=== PATIENT | male | born 1955 | race Caucasian/White ===

== ENCOUNTER 2017-01-11 10:43 | Inpatient (IN) | payer OTHER ==
[2017-01-11] MEDS ORDERED: ONDANSETRON 4 MG/2ML 2 ML VIAL ONE ×2 (11:46→20:24)
[2017-01-11] MEDS ORDERED: MORPHINE SULFATE 4 MG/ML SYRINGE ONE (11:46)
[2017-01-11 12:06] LABS: ABSOLUTE NEUTROPHIL COUNT 5.1 K/mm3 (1.8-7.7); BASO # 0.1 K/mm3 (0.0-0.2); BASO % 0.7 % (0.2-1.0); EOS # 0.2 (0.0-0.5); EOS % 2.6 % (0.9-2.9); HEMATOCRIT 47.9 % (32.0-52.0); HEMOGLOBIN 16.3 gm/l (14.0-18.0); IMM NEUT% 0.2 % (0-1); LYMPH # 2.5 (1.0-4.8); MEAN CELL VOLUME 94.5 fl (80.0-94.0); MEAN CORPUSCULAR HEMOGLOBIN 32.1 pg (27.0-31.0); MEAN PLATELET VOLUME 10.9 fl (7.4-10.4); MONO # 0.7 (0.0-0.8); MONO % 7.6 % (4-12); NEUT % 59.9 % (43-75); PLATELET COUNT 254 K/mm3 (130-400); RED CELL DISTRIBUTION WIDTH 13.2 % (11.5-14.5)
--- NOTE | 2017-01-11 12:10 | RAD ---
FINGER LEFT HISTORY: Bug bite to the ring finger now with swelling and pain. COMPARISONS: None. FINDINGS: 3 views of the left fourth ray demonstrate diffuse soft tissue swelling involving the proximal aspect. The osseous structures remain intact. No foreign body or soft tissue gas is suggested. The joint spaces are well-maintained. The alignment is intact. IMPRESSION: 1. Diffuse soft tissue swelling of the proximal left fourth ray with no focal osseous abnormalities are identified.
[2017-01-11] MEDS ORDERED: VANCOMYCIN HCL 1.5 G in SODIUM CHLORIDE 0.9% 500 ML IV ONE (12:15)
[2017-01-11 12:18] LABS: ALB/GLOB RATIO 1.3 (>1.0); ALBUMIN 4.4 gm/dL (3.5-5.7); CALCIUM 9.7 mg/dL (8.6-10.3)
[2017-01-11] MEDS ORDERED: SODIUM CHLORIDE 0.9% FLUSH 10 ML ONE (13:49)
[2017-01-11 14:12] VITALS: BMI 35.0
[2017-01-11] MEDS ORDERED: BISACODYL 10 MG SUP PR PRN (14:26)
[2017-01-11] MEDS ORDERED: DIPHENHYDRAMINE HCL 50 MG CAPSULE PO PRN (14:26)
[2017-01-11] MEDS ORDERED: ACETAMINOPHEN 325 MG TABLET PO PRN (14:26)
[2017-01-11] MEDS ORDERED: BISACODYL 5 MG TABLET.EC PO PRN (14:26)
[2017-01-11] MEDS ORDERED: MENTHOL/CETYLPYRD 1 EACH LOZENGE PO PRN (14:26)
[2017-01-11] MEDS ORDERED: BLISTEX LIPSTICK 1 EACH TP PRN (14:26)
[2017-01-11] MEDS ORDERED: MAGNESIUM HYDROXIDE 30 ML UDCUP PO PRN (14:26)
[2017-01-11] MEDS ORDERED: CALCIUM CARBONATE 500 MG TAB.CHEW PO PRN (14:26)
[2017-01-11] MEDS ORDERED: ONDANSETRON 4 MG/2ML 2 ML VIAL IV PRN (14:38)
--- NOTE | 2017-01-11 16:41 | PDOC36 ---
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 Over the last few days the pain, swelling and discoloration have increased. Patient also complains of drainage. ROS: no chest pain, SOB, nausea, vomitting. 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 he does have fusiform swelling, pain with passive motion, however all of his tenderness is dorsally. this does not appear to be tenosynovitis. I will reassess this in the OR Xrays:No bony abnormalities noted, large soft tissue swelling Assessment: Left Ring Finger Infection Plan: Will take to OR for I&D with cultures. Hold IV abx until cultures obtained May return to OR on saturday pending the dressing change
[2017-01-11] MEDS: MORPHINE SULFATE 2 MG/ML SYRINGE IV PRN (18:05)
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
[2017-01-11] MEDS ORDERED: FENTANYL 100 MCG/2 ML VIAL ONE (20:21)
[2017-01-11] MEDS ORDERED: MIDAZOLAM HCL 1 MG/ML 2ML VIAL ONE (20:21)
[2017-01-11] MEDS ORDERED: LIDOCAINE 2% (PRES FREE) 5 ML VIAL ONE (20:24)
[2017-01-11] MEDS ORDERED: PROPOFOL 40 ML IV ONE (20:24)
[2017-01-11] MEDS ORDERED: LIDOCAINE 1% (PRES FREE) 30 ML VIAL ONE (21:03)
[2017-01-11] MEDS ORDERED: BUPIVACAINE 0.5% (PRES FREE) 30 ML VIAL ONE (21:03)
[2017-01-11] MEDS ORDERED: ATROPINE SULFATE 0.4 MG/1 ML VIAL IV PRN (21:12)
[2017-01-11] MEDS ORDERED: NALOXONE HCL 0.4 MG/ML VIAL IV PRN (21:12)
[2017-01-11] MEDS ORDERED: FENTANYL 100 MCG/2 ML VIAL IV PRN (21:12)
[2017-01-11] MEDS ORDERED: PROMETHAZINE HCL 25 MG/ML VIAL IM PRN (21:12)
[2017-01-11] MEDS ORDERED: KETOROLAC TROMETHAMINE 30 MG/ML 1 ML VIAL ONE (21:14)
[2017-01-11] MEDS ORDERED: CEFAZOLIN SODIUM 1,000 MG VIAL ONE (21:14)
[2017-01-11] MEDS ORDERED: LACTATED RINGERS 1,000 ML IV SCH (21:15)
--- NOTE | 2017-01-11 21:42 | PCMBPN ---
Brief Post Op Note: Date of Procedure: 01/11/17 Start Time: 2099 Preoperative Diagnosis: 1. left ring finger infection Postoperative Diagnosis: 1. Same Procedure: left ring finger I&D Surgeon: Estrella Siegel MD Assist:none Anesthesia: local w/ MAC Findings: severe necrotic tissue over the PIPJ Condition: stable Complications: none IV Fluids: 500 mLs of LR Urine Output: 0 mLs Estimated Blood Loss: 25 mLs Tourniquet Time: N/A Specimens: aerobic & anaerobic cultures Implants: none Drains: iodoform packing
[2017-01-11] MEDS: DOCUSATE SODIUM 100 MG CAPSULE PO SCH (23:26)
[2017-01-11] MEDS: VANCOMYCIN HCL 1.25 G in SODIUM CHLORIDE 0.9% 250 ML IV SCH (23:31)
[2017-01-12] MEDS: SODIUM CHLORIDE 0.9% 100 ML IV PRN ×2 (05:03→21:24)
[2017-01-12] MEDS: CEFAZOLIN SODIUM 1 GRAM PREMIX 1 G in Premix (D5W) 50 ml 1 EACH IV SCH ×3 (05:03→21:24)
[2017-01-12 06:26] LABS: ABSOLUTE NEUTROPHIL COUNT 4.8 K/mm3 (1.8-7.7); BASO # 0.1 K/mm3 (0.0-0.2); BASO % 0.7 % (0.2-1.0); EOS # 0.2 (0.0-0.5); EOS % 3.2 % (0.9-2.9); HEMATOCRIT 46.1 % (32.0-52.0); HEMOGLOBIN 15.6 gm/l (14.0-18.0); IMM NEUT% 0.3 % (0-1); LYMPH # 1.7 (1.0-4.8); LYMPH % 22.6 % (15-45); MEAN CELL VOLUME 94.1 fl (80.0-94.0); MEAN CORPUSCULAR HEMOGLOBIN 31.8 pg (27.0-31.0); MEAN CORPUSCULAR HGB CONC 33.8 g/dl (33.0-37.0); MEAN PLATELET VOLUME 11.3 fl (7.4-10.4); MONO # 0.8 (0.0-0.8); MONO % 9.9 % (4-12); NEUT % 63.3 % (43-75); PLATELET COUNT 223 K/mm3 (130-400); RED CELL DISTRIBUTION WIDTH 13.1 % (11.5-14.5)
[2017-01-12 07:04] LABS: CALCIUM 9.1 mg/dL (8.6-10.3)
--- NOTE | 2017-01-12 07:46 | PDOC43 ---
- Subjective Chief Complaint: Left 4th finger abscess Subjective: Reports Pain Tolerable, Reports Tolerating Diet Well, Denies Nausea , Denies Vomiting, Denies Fever - Objective Vital Signs Temperature 98.3 F 01/12/17 02:50 Pulse Rate 61 01/12/17 02:50 Respiratory Rate 16 01/12/17 02:50 Blood Pressure 138/83 01/12/17 02:50 O2 Saturation by Pulse Oximetry 94 01/12/17 02:50 Oxygen Delivery Method Room Air Oxygen Flow Rate 0 Intake and Output 01/10/17 01/11/17 01/12/17 23:59 23:59 23:59 Output Total 600 Balance -600 General: Alert, Oriented x3, Cooperative, No Acute Distress HEENT: Atraumatic, PERRLA, EOMI Wound: Dressing Clean/Dry/Intact (bandage not remove, good distal cap refill and intact sensation) Laboratory 01/12/17 05:30 01/12/17 05:30 01/12/17 05:30 MCV 94.1 H MCH 31.8 H Current Medications: Current meds reviewed in EMR. - Problems: Assessment/Plan (1) Abscess of finger of left hand Status: AcuteAssessment/Plan: Empiric Abx IV until ID and sensitivity. Wash out possibly again on Saturday pending dressing change by ortho. GPC on gram stain. Empiric MRSA coverage and precautions. Pain controlled (2) Pain Status: AcuteAssessment/Plan: controlled (3) Venomous bite Status: AcuteAssessment/Plan: Possible spider bite VTE Prophylaxis: ICP Disposition: Anticipate 2-3 day stay
--- NOTE | 2017-01-12 10:25 | PDOC43 ---
- Subjective Subjective: Reports Pain Tolerable, Denies Fever - Objective Vital Signs Temperature 98.0 F 01/12/17 07:48 Pulse Rate 66 01/12/17 07:48 Respiratory Rate 18 01/12/17 08:00 Blood Pressure 152/84 01/12/17 07:48 O2 Saturation by Pulse Oximetry 95 01/12/17 07:48 Oxygen Delivery Method Room Air Oxygen Flow Rate 0 Laboratory 01/12/17 05:30 01/12/17 05:30 01/12/17 05:30 MCV 94.1 H MCH 31.8 H Active Medication Orders Category Date Time Status Acetaminophen [Tylenol] Med 01/11/17 14:26 Active 650 mg PO Q6H PRN Bisacodyl [Dulcolax] Med 01/11/17 14:26 Active 10 mg [place] DAILY PRN Bisacodyl [Dulcolax] Med 01/11/17 14:26 Active 5 mg PO DAILY PRN Calcium Carbonate [Tums] Med 01/11/17 14:26 Active 500 mg PO Q4H PRN Cefazolin Sodium 1 Gram Premix [Ancef 1 Gram Premix] 1 Med 01/12/17 05:00 Active g Premix (D5W) 50 ml 1 each IV Q8H Diphenhydramine HCl [Benadryl] Med 01/11/17 14:26 Active 25 - 50 mg PO Q6H PRN Docusate Sodium [Colace] Med 01/11/17 21:00 Active 100 mg PO BID Hydrocodone Bit/Acetaminophen [[place] 5/325] Med 01/11/17 14:31 Active 1 tab PO Q4H PRN Lip [place] [Blistex] Med 01/11/17 14:26 Active 1 each TP PRN PRN Magnesium Hydroxide [Milk of Magnesia] Med 01/11/17 14:26 Active 30 ml PO DAILY PRN Menthol/Cetylpyridinium [Cepacol] Med 01/11/17 14:26 Active 1 each PO PRN PRN Morphine Sulfate Med 01/11/17 14:33 Active 2 mg IV Q2H PRN Ondansetron 4 mg/2ml Vial [Zofran] Med 01/11/17 14:38 Active 4 mg IV Q4H PRN Promethazine HCl [Phenergan] Med 01/11/17 21:12 Active 12.5 - 25 mg IM X1 PRN Sodium Chloride 0.9% 100 ml Med 01/11/17 14:26 Active IV PRN Sodium Chloride 0.9% Flush [Normal Saline 10ml Flush] Med 01/11/17 14:26 Active 10 - 50 ml IV PRN PRN Sodium Chloride 0.9% Flush [Normal Saline 10ml Flush] Med 01/11/17 17:00 Active 10 ml IV Q8HR Vancomycin HCl 1.25 g Med 01/11/17 23:00 Active Sodium Chloride 0.9% 250 ml IV Q12H Intake and Output 01/11/17 01/12/17 01/13/17 06:59 06:59 06:59 Output Total 600 Balance -600 General: Afebrile, No Acute Distress Skin: Normal Color, Warm - Left Upper Extremity Incision: Dressing Clean/Dry/Intact Gross Sensation to Light Touch: Present: Median Nerve, Ulnar Nerve Capillary Refill: < 3 Seconds - Problems (1) Abscess of finger of left hand Status: AcuteAssessment/Plan: POD1 left ring finger I&D - will return to OR tomorrow for repeat I&D - continue broad spectrum abx - f/u culture results
[2017-01-12] MEDS: HYDROCODONE/ACETAMINOPHEN 5/325MG TABLET PO PRN (12:06)
[2017-01-12] MEDS: VANCOMYCIN HCL 1.25 G in SODIUM CHLORIDE 0.9% 250 ML IV SCH ×2 (12:06→23:25)
--- NOTE | 2017-01-12 16:02 | OP ---
JOSE MIGUEL LANGSTON JR [id number] DATE OF OPERATION: 01/11/2017 CLINICAL SERVICE: Orthopedics. STAFF: Estrella Siegel M.D. PREOPERATIVE DIAGNOSIS: Left ring finger infection. POSTOPERATIVE DIAGNOSIS: Left ring finger infection. OPERATION PERFORMED: Left ring finger irrigation and debridement. SURGEON: Estrella Siegel M.D. MMA FIGHTER: None. ANESTHESIA: Local, with an anesthetic concentration. DESCRIPTION OF FINDINGS: Severe necrotic tissue over the PIPJ of the left ring finger on the dorsal aspect. CONDITION: Stable. COMPLICATIONS: None. IV FLUIDS: 500 mL of lactated Ringer's. PREOPERATIVE ANTIBIOTICS: None. He did get one gram of Ancef following obtaining cultures. URINE OUTPUT: Zero. ESTIMATED BLOOD LOSS: 25 mL TOURNIQUET TIME: None. SPECIMENS SENT TO LABORATORY FOR EXAMINATION: Aerobic and anaerobic cultures. IMPLANTS: None. DRAINS: He had iodoform packing placed. DESCRIPTION OF OPERATION: The patient was identified in the preop holding area. Consent was verified and the patient was escorted back to the operative suite by the anesthesia staff. The patient was placed on the table in supine position, prepped and draped in the usual sterile fashion. A time-out was taken to ensure proper patient laterality and procedure being conducted. After this, I began the procedure by performing an incision over the dorsal aspect of the PIPJ. Intraoperative cultures were obtained and then IV antibiotics were given following these cultures. I used a curette and rongeur to debride the necrotic tissue and extended my incision distal and proximal to the necrotic tissue to healthy tissue. I was able to identify the extensor tendon, which does not appear to have any signs of injury. All the necrotic tissue was debrided and the necrotic tissue was left open and packed with iodoform gauze. The healthy aspect of the skin was closed with 2-0 nylon. This was thoroughly irrigated prior to closure with one liter of normal saline. A sterile dressing was applied and the patient was transported back to the postanesthesia care unit in stable condition. He tolerated the procedure well. POSTOPERATIVE CARE: The patient will likely come back to the operating room on Saturday for repeat irrigation, debridement and dressing change.
[2017-01-12] MEDS: DOCUSATE SODIUM 100 MG CAPSULE PO SCH ×3 (18:23→21:35)
[2017-01-13] MEDS: CEFAZOLIN SODIUM 1 GRAM PREMIX 1 G in Premix (D5W) 50 ml 1 EACH IV SCH (05:10)
[2017-01-13] MEDS ORDERED: LIDOCAINE 1% (PRES FREE) 30 ML VIAL ONE (07:39)
[2017-01-13] MEDS ORDERED: BUPIVACAINE 0.5% (PRES FREE) 30 ML VIAL ONE (07:39)
[2017-01-13] MEDS ORDERED: MIDAZOLAM HCL 1 MG/ML 2ML VIAL ONE (08:03)
[2017-01-13] MEDS ORDERED: PROPOFOL 20 ML IV ONE ×2 (08:03→08:51)
[2017-01-13] MEDS ORDERED: LIDOCAINE 2% (PRES FREE) 5 ML VIAL ONE (08:03)
[2017-01-13] MEDS ORDERED: FENTANYL 100 MCG/2 ML VIAL ONE (08:06)
[2017-01-13] MEDS ORDERED: NALOXONE HCL 0.4 MG/ML VIAL IV PRN (08:39)
[2017-01-13] MEDS ORDERED: ATROPINE SULFATE 0.4 MG/1 ML VIAL IV PRN (08:39)
[2017-01-13] MEDS ORDERED: ONDANSETRON 4 MG/2ML 2 ML VIAL IV PRN (08:39)
[2017-01-13] MEDS ORDERED: FENTANYL 100 MCG/2 ML VIAL IV PRN (08:39)
[2017-01-13] MEDS ORDERED: LACTATED RINGERS 1,000 ML IV SCH (08:45)
[2017-01-13] MEDS: MORPHINE SULFATE 2 MG/ML SYRINGE IV PRN ×2 (09:40→23:59)
--- NOTE | 2017-01-13 09:43 | PCMBPN ---
Brief Post Op Note: Date of Procedure: 01/13/17 Start Time: 0830 Preoperative Diagnosis: 1. left ring finger infection Postoperative Diagnosis: 1. Same Procedure: left ring finger irrigation and debridement Surgeon: Estrella Siegel MD Assist:none Anesthesia: local w/ MAC Findings: consistent with MRSA Condition: stable Complications: none IV Fluids: 500 mLs of LR Urine Output: 0 mLs Estimated Blood Loss: 15 mLs Tourniquet Time: 0 Specimens: N/A Implants: none Drains: iodoform packing
[2017-01-13] MEDS ORDERED: VANCOMYCIN HCL IV SCH ×2 (09:45)
[2017-01-13] MEDS ORDERED: DEXTROSE IV SCH ×2 (09:45)
[2017-01-13] MEDS ORDERED: D5W IV SCH ×2 (09:45)
--- NOTE | 2017-01-13 09:47 | PDOC36 ---
Provider Note Note: I took the patient back to the OR today for repeat I&D. The skin necrosis was much worse today than upon admission. This appears to be a very aggressive infection. Patient will need another repeat I&D within the next 48 hours. I changed his vancomycin dosing to 1g/12h due to his high vanc trough. cultures are still pending, those need to be followed up and be placed on the appropriate oral or IV antibiotic Patient was counseled on the fact that this is quite aggressive and that he may need an amputation if this doesn't make improvements over the next few days.
--- NOTE | 2017-01-13 10:42 | PDOC43 ---
- Subjective Chief Complaint: Left 4th finger abscess Subjective: Reports Pain Tolerable, Reports Tolerating Diet Well, Reports Urinating Without Difficulty, Denies Nausea, Denies Vomiting, Denies Fever, Denies Chills - Objective Vital Signs Temperature 98.2 F 01/13/17 09:07 Pulse Rate 65 01/13/17 09:07 Respiratory Rate 16 01/13/17 09:07 Blood Pressure 140/86 01/13/17 09:07 O2 Saturation by Pulse Oximetry 96 01/13/17 09:07 Oxygen Delivery Method Room Air Oxygen Flow Rate 0 Intake and Output 01/11/17 01/12/17 01/13/17 23:59 23:59 23:59 Intake Total 600 850 Output Total 900 425 Balance -300 425 General: Alert, Oriented x3, Cooperative, No Acute Distress HEENT: Atraumatic, PERRLA, EOMI, Mucous membr. moist/pink Lungs: Clear to Auscultation Bilaterally, Normal Air Movement Cardiovascular: Regular Rate and Rhythm Abdomen: Soft, Normal Bowel Sounds, No Tenderness Wound: Dressing Clean/Dry/Intact Psych/Mental Status: Normal Affect, Normal Mood Laboratory 01/12/17 05:30 01/12/17 05:30 01/12/17 22:15 Vancomycin Trough 13.5 H Current Medications: Current meds reviewed in EMR. - Problems: Assessment/Plan (1) Abscess of finger of left hand Status: AcuteAssessment/Plan: Empiric Abx IV until ID and sensitivity. Wash out today, Saturday, with worsening necrosis. GPC on gram stain. Will broaden empiric coverage to continue Vanc for MRSA coverage and add Zosyn for mixed nayeli. Pain controlled. Ortho plans repeat OR trip again in next 48hrs. (2) Pain Status: AcuteAssessment/Plan: controlled (3) Venomous bite Status: AcuteAssessment/Plan: Possible spider bite VTE Prophylaxis: ICPs. Fully ambulatory Disposition: Anticipate additional 2-3 day stay depending or orthopedic management
[2017-01-13] MEDS: VANCOMYCIN HCL 1.25 G in SODIUM CHLORIDE 0.9% 250 ML IV SCH (11:11)
[2017-01-13] MEDS: SODIUM CHLORIDE 0.9% 100 ML IV PRN (11:12)
[2017-01-13] MEDS: VANCOMYCIN HCL 1.75 G in SODIUM CHLORIDE 0.9% 500 ML IV SCH ×2 (11:23→23:36)
[2017-01-13] MEDS ORDERED: PIPERACILLIN-TAZO PREMIX BAG 3.375 G in Premix (D5W) 50 ml 1 EACH IV SCH (12:00)
[2017-01-13] MEDS: DOCUSATE SODIUM 100 MG CAPSULE PO SCH ×2 (13:18→22:24)
--- NOTE | 2017-01-13 16:08 | OP ---
JOSE MIGUEL LANGSTON JR. [id number] DATE OF PROCEDURE: 01/13/2017 CLINICAL SERVICE: Orthopedics. STAFF: Estrella Siegel M.D. PREOPERATIVE DIAGNOSIS: Left ring finger infection. POSTOPERATIVE DIAGNOSIS: Left ring finger infection. OPERATION PERFORMED: Left ring finger irrigation and debridement. SURGEON: Estrella Siegel M.D. PET GROOMER: None. ANESTHESIA: Local, with a minimal anesthetic concentration. DESCRIPTION OF FINDINGS: Consistent with methicillin-resistant Staphylococcus aureus. POSTOPERATIVE CONDITION: Stable. COMPLICATIONS: None. IV FLUIDS: 500 mL of lactated Ringer's. URINE OUTPUT: 0 (zero) ESTIMATED BLOOD LOSS: 15 mL TOURNIQUET TIME: 0 (zero) SPECIMENS SENT TO LABORATORY FOR EXAMINATION: None. IMPLANTS: None. DRAINS: Iodoform packing. INDICATION FOR OPERATION: This is a 61-year-old male with a history of left ring finger infection. He was taken to the operating room 2 days for initial irrigation and debridement. He was taken back again today for repeat irrigation and debridement. He was found to have an aggressive infection. He may necessitate multiple debridements in the future. DESCRIPTION OF OPERATION: The patient was identified in the preop holding area. Consent was verified and the patient was escorted back to the operative suite by the anesthesia staff. The patient was placed on the table in supine position, and prepped and draped in the usual sterile fashion. A time-out was taken to ensure proper patient laterality and procedure being conducted. After this, I began local anesthetic with 1% lidocaine, 0.50% Marcaine, and 50/50 mix and injected 10 mL of dorsal metacarpal block. I began the procedure by removing the previous sutures and thoroughly debriding the skin that was necrotic in nature. He had an approximately 3 cm edge of necrotic tissue throughout the extent of his previous debridement. This was debrided with a knife, and he had approximately 5 cm x 20 cm length in skin loss, the 20 cm length was longitudinal. The skin was removed, and necrotic tissue underlying the skin was debrided with a curette. The appearance of this tissue is very similar of methicillin-resistant Staphylococcus aureus. Once the debridement was completed and thoroughly irrigated with 1 L of normal saline, and then 1 L of betadine diluted solution. I then concluded the procedure by placing iodoform packing into the wound, and then reapproximate the wound with 3-0 nylon. A sterile dressing was applied, as well as a postoperative splint. The patient was brought back to the postanesthesia care unit in stable condition. He tolerated the procedure well. JOB #: [id number] COLIN/kelechi
[2017-01-13] MEDS ORDERED: SODIUM CHLORIDE 0.9% 250 ML IV ONE (19:39)
[2017-01-13] MEDS: HYDROCODONE/ACETAMINOPHEN 5/325MG TABLET PO PRN ×2 (20:04→21:08)
[2017-01-13] MEDS: PIPERACILLIN-TAZO PREMIX BAG 3.375 G in Premix (D5W) 50 ml 1 EACH IV SCH (20:04)
[2017-01-14] MEDS: HYDROCODONE/ACETAMINOPHEN 5/325MG TABLET PO PRN ×3 (01:50→15:49)
[2017-01-14] MEDS: PIPERACILLIN-TAZO PREMIX BAG 3.375 G in Premix (D5W) 50 ml 1 EACH IV SCH ×4 (02:07→20:15)
[2017-01-14 06:34] LABS: ABSOLUTE NEUTROPHIL COUNT 2.9 K/mm3 (1.8-7.7); BASO # 0.1 K/mm3 (0.0-0.2); EOS # 0.3 (0.0-0.5); EOS % 4.6 % (0.9-2.9); HEMATOCRIT 44.6 % (32.0-52.0); HEMOGLOBIN 15.1 gm/l (14.0-18.0); IMM NEUT% 0.3 % (0-1); LYMPH # 2.3 (1.0-4.8); MEAN CELL VOLUME 93.9 fl (80.0-94.0); MEAN CORPUSCULAR HEMOGLOBIN 31.8 pg (27.0-31.0); MEAN CORPUSCULAR HGB CONC 33.9 g/dl (33.0-37.0); MEAN PLATELET VOLUME 10.6 fl (7.4-10.4); MONO # 0.8 (0.0-0.8); MONO % 11.9 % (4-12); NEUT % 45.2 % (43-75); PLATELET COUNT 222 K/mm3 (130-400); RED CELL DISTRIBUTION WIDTH 12.6 % (11.5-14.5)
[2017-01-14 06:58] LABS: CALCIUM 8.8 mg/dL (8.6-10.3)
[2017-01-14] MEDS ORDERED: PUMP TUBING ONE (08:21)
[2017-01-14] MEDS: SODIUM CHLORIDE 0.9% 100 ML IV PRN (08:28)
[2017-01-14] MEDS: DOCUSATE SODIUM 100 MG CAPSULE PO SCH ×2 (08:29→21:38)
--- NOTE | 2017-01-14 08:56 | PDOC43 ---
- Subjective Chief Complaint: Left 4th finger abscess Subjective: Reports Pain Tolerable, Reports Tolerating Diet Well, Reports Bowel Movement, Reports Urinating Without Difficulty, Denies Abdominal Pain, Denies Nausea, Denies Vomiting, Denies Fever - Objective Vital Signs Temperature 97.6 F 01/14/17 07:42 Pulse Rate 58 01/14/17 07:42 Respiratory Rate 16 01/14/17 07:42 Blood Pressure 141/79 01/14/17 07:42 O2 Saturation by Pulse Oximetry 98 01/14/17 07:42 Oxygen Delivery Method Room Air Oxygen Flow Rate 0 Intake and Output 01/12/17 01/13/17 01/14/17 23:59 23:59 23:59 Intake Total 600 2750 900 Output Total 900 925 Balance -300 1825 900 General: Alert, Oriented x3, Cooperative, No Acute Distress HEENT: Atraumatic, PERRLA, EOMI, Mucous membr. moist/pink Lungs: Clear to Auscultation Bilaterally Cardiovascular: Regular Rate and Rhythm Abdomen: Soft, Normal Bowel Sounds, No Tenderness Extremities: Normal Cap Refill Wound: Dressing Clean/Dry/Intact Laboratory 01/14/17 05:30 01/14/17 05:30 01/14/17 05:30 MCH 31.8 H Current Medications: Current meds reviewed in EMR. - Problems: Assessment/Plan (1) Abscess of finger of left hand Status: AcuteAssessment/Plan: Empiric Abx IV pending ID and sensitivity. Washed twice, most recently Saturday, with worsening necrosis noted. GPC on gram stain. Vanc for MRSA coverage and add Zosyn for mixed nayeli. Pain controlled. Ortho plans repeat OR trip again in next 48hrs. (2) Pain Status: AcuteAssessment/Plan: controlled with Vicodin, Morphine IV for breakthrough (3) Venomous bite Status: AcuteAssessment/Plan: Possible spider bite VTE Prophylaxis: ICPs. Fully ambulatory Disposition: Anticipate additional 2-3 day stay depending or orthopedic management
[2017-01-14] MEDS: VANCOMYCIN HCL 1.75 G in SODIUM CHLORIDE 0.9% 500 ML IV SCH (12:47)
[2017-01-15] MEDS: VANCOMYCIN HCL 1.75 G in SODIUM CHLORIDE 0.9% 500 ML IV SCH (00:17)
[2017-01-15] MEDS: HYDROCODONE/ACETAMINOPHEN 5/325MG TABLET PO PRN ×4 (02:26→20:43)
[2017-01-15] MEDS: PIPERACILLIN-TAZO PREMIX BAG 3.375 G in Premix (D5W) 50 ml 1 EACH IV SCH ×4 (02:26→20:33)
[2017-01-15 06:30] LABS: ABSOLUTE NEUTROPHIL COUNT 3.4 K/mm3 (1.8-7.7); BASO # 0.1 K/mm3 (0.0-0.2); BASO % 0.9 % (0.2-1.0); EOS # 0.3 (0.0-0.5); EOS % 4.4 % (0.9-2.9); HEMOGLOBIN 15.1 gm/l (14.0-18.0); IMM NEUT% 0.4 % (0-1); LYMPH # 2.4 (1.0-4.8); LYMPH % 35.6 % (15-45); MEAN CELL VOLUME 92.2 fl (80.0-94.0); MEAN CORPUSCULAR HEMOGLOBIN 31.7 pg (27.0-31.0); MEAN CORPUSCULAR HGB CONC 34.3 g/dl (33.0-37.0); MEAN PLATELET VOLUME 10.4 fl (7.4-10.4); MONO # 0.6 (0.0-0.8); NEUT % 49.7 % (43-75); PLATELET COUNT 230 K/mm3 (130-400); RED CELL DISTRIBUTION WIDTH 12.3 % (11.5-14.5)
[2017-01-15 06:49] LABS: CALCIUM 8.8 mg/dL (8.6-10.3)
[2017-01-15] MEDS: SODIUM CHLORIDE 0.9% 100 ML IV PRN ×2 (08:09→20:33)
[2017-01-15] MEDS: DOCUSATE SODIUM 100 MG CAPSULE PO SCH ×3 (08:10→20:54)
[2017-01-15] MEDS ORDERED: VANCOMYCIN HCL 1.5 G in SODIUM CHLORIDE 0.9% 500 ML IV SCH (14:30)
--- NOTE | 2017-01-15 14:48 | PDOC43 ---
- Subjective Chief Complaint: Left 4th finger abscess Feeling fine. Good pain control. Subjective: Reports Tolerating Diet Well, Denies Nausea, Denies Vomiting, Denies Fever, Denies Chills - Objective Vital Signs Temperature 98.3 F 01/15/17 14:00 Pulse Rate 59 01/15/17 14:00 Respiratory Rate 16 01/15/17 14:00 Blood Pressure 145/84 01/15/17 14:00 O2 Saturation by Pulse Oximetry 94 01/15/17 14:00 Oxygen Delivery Method Room Air Oxygen Flow Rate 0 Intake and Output 01/14/17 01/15/17 01/16/17 06:59 06:59 06:59 Intake Total 2800 2810 Output Total 500 1550 450 Balance 2300 1260 -450 General: Alert, Oriented x3, Cooperative, No Acute Distress Extremities: Normal Cap Refill, Normal Pulses, Other (Dressings C/D/I.) Laboratory 01/15/17 06:00 01/15/17 05:10 01/15/17 01/15/17 01/15/17 11:15 06:00 05:10 MCH 31.7 H Estimated GFR 86 H Vancomycin Trough 23.8 H Current Medications: Current meds reviewed in EMR. - Problems: Assessment/Plan (1) Abscess of finger of left hand Status: AcuteAssessment/Plan: I&D 01/11 and 01/13 with worsening necrosis noted. MSSA on final cx- will d/c vanco and change to cefazolin. Ortho to see again this afternoon for dressing change and re-evaluation. Pain controlled. (2) Venomous bite Status: AcuteAssessment/Plan: Possible spider bite VTE Prophylaxis: ICPs. Fully ambulatory Disposition: Anticipate additional 1-2 day stay depending or orthopedic management.
[2017-01-15] MEDS: CEFAZOLIN SODIUM 1 GRAM PREMIX 50 ML IV SCH (16:58)
[2017-01-15] MEDS ORDERED: HYDROMORPHONE HCL 1 MG/ML SYRINGE ONE (18:05)
[2017-01-15] MEDS ORDERED: HYDROMORPHONE HCL 1 MG/ML SYRINGE IV ONE (18:09)
--- NOTE | 2017-01-15 18:12 | PDOC43 ---
- Subjective Findings: Pt seen this evening with Dr. Shah. We also had nurses from [facility] for wound dressing changed. Pt seems to be doing fine. Pain better today. Subjective: Reports Pain Tolerable, Denies Nausea, Denies Vomiting, Denies Fever - Objective Vital Signs Temperature 98.3 F 01/15/17 14:00 Pulse Rate 59 01/15/17 14:00 Respiratory Rate 16 01/15/17 14:00 Blood Pressure 145/84 01/15/17 14:00 O2 Saturation by Pulse Oximetry 94 01/15/17 14:00 Oxygen Delivery Method Room Air Oxygen Flow Rate 0 Laboratory 01/15/17 06:00 01/15/17 05:10 01/15/17 01/15/17 01/15/17 11:15 06:00 05:10 MCH 31.7 H Estimated GFR 86 H Vancomycin Trough 23.8 H Active Medication Orders Category Date Time Status Acetaminophen [Tylenol] Med 01/11/17 14:26 Active 650 mg PO Q6H PRN Bisacodyl [Dulcolax] Med 01/11/17 14:26 Active 10 mg [place] DAILY PRN Bisacodyl [Dulcolax] Med 01/11/17 14:26 Active 5 mg PO DAILY PRN Calcium Carbonate [Tums] Med 01/11/17 14:26 Active 500 mg PO Q4H PRN Cefazolin Sodium 1 Gram Premix [Ancef 1 Gram Premix] 50 Med 01/15/17 17:00 Active ml IV Q8HR Diphenhydramine HCl [Benadryl] Med 01/11/17 14:26 Active 25 - 50 mg PO Q6H PRN Docusate Sodium [Colace] Med 01/11/17 21:00 Active 100 mg PO BID Hydrocodone Bit/Acetaminophen [[place] 5/325] Med 01/13/17 21:06 Active 1 - 2 tab PO Q4H PRN Lip [place] [Blistex] Med 01/11/17 14:26 Active 1 each TP PRN PRN Magnesium Hydroxide [Milk of Magnesia] Med 01/11/17 14:26 Active 30 ml PO DAILY PRN Menthol/Cetylpyridinium [Cepacol] Med 01/11/17 14:26 Active 1 each PO PRN PRN Ondansetron 4 mg/2ml Vial [Zofran] Med 01/11/17 14:38 Active 4 mg IV Q4H PRN Piperacillin-Tazo Premix Bag [Zosyn 3.375 G] 3.375 g Med 01/13/17 20:30 Active Premix (D5W) 50 ml 1 each IV Q6H Sodium Chloride 0.9% 100 ml Med 01/11/17 14:26 Active IV PRN Sodium Chloride 0.9% Flush [Normal Saline 10ml Flush] Med 01/11/17 14:26 Active 10 - 50 ml IV PRN PRN Sodium Chloride 0.9% Flush [Normal Saline 10ml Flush] Med 01/11/17 17:00 Active 10 ml IV Q8HR Intake and Output 01/13/17 01/14/17 01/15/17 23:59 23:59 23:59 Intake Total 2750 2760 1765 Output Total 164 120 3979 Balance 1825 2160 365 General: Afebrile HEENT: Atraumatic Lungs: Normal Air Movement Skin: Normal Color Neurological: Alert, Oriented x 4 - Left Upper Extremity Incision: Other ([place] removed. Open dorsal wound over the ring finger. Wound several centimeters from DIP proximal past the PIP and not all the way to MCP. Exposed tendon after packing removed. Gentle ROM PIP with out significant pain. No rao side involvement.) - Problems (1) Abscess of finger of left hand Status: AcuteAssessment/Plan: POD2 left ring finger I&D - [facility] treatment in the am - IV antibiotics Ancef - Plan for D/C tomorrow. Appreciate hospitalists care and consult
[2017-01-16] MEDS: CEFAZOLIN SODIUM 1 GRAM PREMIX 50 ML IV SCH ×2 (01:21→09:44)
[2017-01-16] MEDS: PIPERACILLIN-TAZO PREMIX BAG 3.375 G in Premix (D5W) 50 ml 1 EACH IV SCH (01:52)
[2017-01-16] MEDS: HYDROCODONE/ACETAMINOPHEN 5/325MG TABLET PO PRN ×3 (01:56→11:30)
--- NOTE | 2017-01-16 07:42 | PDOC43 ---
- Subjective Subjective: Reports Pain Tolerable, Denies Nausea, Denies Vomiting, Denies Fever - Objective Vital Signs Temperature 98.0 F 01/16/17 07:21 Pulse Rate 57 01/16/17 07:21 Respiratory Rate 17 01/16/17 07:21 Blood Pressure 141/79 01/16/17 07:21 O2 Saturation by Pulse Oximetry 98 01/16/17 07:21 Oxygen Delivery Method Room Air Oxygen Flow Rate 0 Laboratory 01/15/17 06:00 01/15/17 05:10 01/15/17 11:15 Vancomycin Trough 23.8 H Active Medication Orders Category Date Time Status Acetaminophen [Tylenol] Med 01/11/17 14:26 Active 650 mg PO Q6H PRN Bisacodyl [Dulcolax] Med 01/11/17 14:26 Active 10 mg [place] DAILY PRN Bisacodyl [Dulcolax] Med 01/11/17 14:26 Active 5 mg PO DAILY PRN Calcium Carbonate [Tums] Med 01/11/17 14:26 Active 500 mg PO Q4H PRN Cefazolin Sodium 1 Gram Premix [Ancef 1 Gram Premix] 50 Med 01/15/17 17:00 Active ml IV Q8HR Diphenhydramine HCl [Benadryl] Med 01/11/17 14:26 Active 25 - 50 mg PO Q6H PRN Docusate Sodium [Colace] Med 01/11/17 21:00 Active 100 mg PO BID Hydrocodone Bit/Acetaminophen [[place] 5/325] Med 01/13/17 21:06 Active 1 - 2 tab PO Q4H PRN Lip [place] [Blistex] Med 01/11/17 14:26 Active 1 each TP PRN PRN Magnesium Hydroxide [Milk of Magnesia] Med 01/11/17 14:26 Active 30 ml PO DAILY PRN Menthol/Cetylpyridinium [Cepacol] Med 01/11/17 14:26 Active 1 each PO PRN PRN Ondansetron 4 mg/2ml Vial [Zofran] Med 01/11/17 14:38 Active 4 mg IV Q4H PRN Sodium Chloride 0.9% 100 ml Med 01/11/17 14:26 Active IV PRN Sodium [place]lor[place] 0.9% Flush [Normal Saline 10ml Flush] Med 01/11/17 14:26 Active 10 - 50 ml IV PRN PRN Sodium Chloride 0.9% Flush [Normal Saline 10ml Flush] Med 01/11/17 17:00 Active 10 ml IV Q8HR Intake and Output 01/14/17 01/15/17 01/16/17 23:59 23:59 23:59 Intake Total 2760 1765 562 Output Total 600 1400 400 Balance 2160 365 162 General: Afebrile Skin: Normal Color, No Rash, No Erythema Neurological: Alert, Oriented x 4 Psych/Mental Status: Normal Affect, Normal Mood - Left Upper Extremity Incision: Dressing Clean/Dry/Intact Capillary Refill: < 3 Seconds Motion: gentle AROM well tolerated - Problems (1) Abscess of finger of left hand Status: AcuteAssessment/Plan: POD3 left ring finger I&D- Cx +for coagulase negative Staph sensitive to Ancef. - [facility] treatment today - IV antibiotics Ancef improving clinically with normalized WBC. Discusssed care plan with Dr. Schofield who will be available depending on clinical response - Plan for D/C today after PICC. Informed consent/PAR conference. Appreciate hospitalists care and consult -will follow as outpatient. Suspect will need delayed primary closure when wound improved.
[2017-01-16] MEDS: DOCUSATE SODIUM 100 MG CAPSULE PO SCH (09:45)
[2017-01-16] MEDS ORDERED: LIDOCAINE 1% (PRES FREE) 5 ML VIAL PF PRN (11:14)
[2017-01-16] MEDS ORDERED: LORAZEPAM 2 MG/ML 1ML SDV IV PRN (11:14)
--- NOTE | 2017-01-16 13:59 | RAD ---
EXAMINATION : CXR FOR PLACEMENT/LINE or TUBE HISTORY: Assess PICC line placement. COMPARISONS: Prior chest radiograph dated 04/08/2013 FINDINGS: The cardiomediastinal silhouette is within normal limits. Lungs are clear. No gross effusion is identified. The osseous structures are within normal limits. A right approach PICC catheter is noted. The distal tip is just above the cavoatrial junction. IMPRESSION: Satisfactory positioning right approach PICC catheter. No acute cardiopulmonary process is identified.
[2017-01-16] MEDS ORDERED: LIDOCAINE 4% TP ONE (14:05)
[2017-01-16 15:03] VITALS: BP 128/81
[2017-01-16] MEDS ORDERED: SODIUM CHLORIDE 0.9% IV PRN (16:00)
[2017-01-16] MEDS ORDERED: [UNRECOGNIZED DRUG - REMARK] ZZ SCH (16:00)
[2017-01-16] MEDS ORDERED: [UNRECOGNIZED DRUG - OTHER] ZZ SCH (16:00)
[2017-01-16] MEDS ORDERED: CEFAZOLIN SODIUM IV PRN (16:00)
--- NOTE | 2017-02-28 13:03 | PDOC5 ---
ADMIT DATE: 01/11/17 DISCHARGE DATE: 01/16/2017 ADMISSION DIAGNOSES: left ring finger infection PROCEDURES PERFORMED THIS HOSPITALIZATION: left ring finger irrigation and debridement x 2 (01/11/17 & 01/13/17) SURGEON:Estrella Siegel DO CONSULTATIONS: INTERNAL MEDICINE BRIEF HISTORY:This is a 61 year old MALE who had a severe left ring finger infection. It was taken to the OR urgently for I&D BRIEF HOSPITAL COURSE: Patient was admitted to the hospital on initial presentation and then taken to the OR urgently for irrigation and debridement on 01/11. He was started on IV anitibiotics and taken back again on 01/13 for repeat I&D due to the severity of the infection. A definitive organism was identified and patient was sent home with the appropriate antibiotics. He was discharged home on 01/16/17 once his pain and symptoms had improved. - Discharge Diagnosis (1) Abscess of finger of left hand Status: Acute - Discharge Plan Condition: Good Disposition: Home Additional Instructions: Keep wound/hand clean and dry Dressing changes per [facility] Antibiotics per [facility]- IV via PICC Prescriptions: Hydrocodone Bit/Acetaminophen [[place] 5/325 MG TABLET (SHF)] 1 - 2 tab PO Q4H PRN #90 PRN Reason: Pain Follow-Up: [facility] [Outside] - 01/18/17 10:00 am Neel Shah MD [Staff Physician] - In 7-10 days (next Saturday/Saturday )
== END 2017-01-16 16:00 | disposition home or self-care (01) | DRG 906 ==
LOC: ED 10:43 → MS 12:52
PROVIDERS: ADMIT Internal Medicine Hematology & Oncology; ATTEND Internal Medicine Hematology & Oncology
PROC: 0JBK0ZZ Excision of Left Hand Subcutaneous Tissue and Fascia, Open Approach (ICD-10-PCS; principal; 2017-01-11)
PROC: 0JBK0ZZ Excision of Left Hand Subcutaneous Tissue and Fascia, Open Approach (ICD-10-PCS; 2017-01-13)
DX: T63.391A Toxic effect of venom of other spider, accidental (unintentional), initial encounter (principal); I96 Gangrene, not elsewhere classified; L03.012 Cellulitis of left finger; Y92.9 Unspecified place or not applicable; E78.5 Hyperlipidemia, unspecified; E83.119 Hemochromatosis, unspecified; A49.02 Methicillin resistant Staphylococcus aureus infection, unspecified site